=== PATIENT | female | born 1980 | race African-American/Black ===

== ENCOUNTER 2018-04-28 10:46 | Emergency (ER) | payer BC, OTHER ==
[~2018-04-28] VITALS: Ht 160 cm; Wt 77.1 kg
[~2018-04-28 10:46] MED LIST: APAP500 PO; AUGMENTIN 875875 MG PO; BACTRIM DS TAB1 EACH PO; CIPRO500 MG PO; HYDROCODON-ACE1 EAC7 PO; KEFLEX500 MG PO; LOPERAMIDE 2 MG2 M1 PO; MACROBID 100 M100 M1 PO; MEDROLDOSEPACK PO; NORCO 5-325 TA1 EACH PO; OMEPRAZOLE10 MG PO; ONDANSETRON HCL4 M2 PO; ORTHO TRI-CYCL1 EACH PO; PHENERGAN 25 MG25 M1 PO; PRILOSEC 20 MG20 MG PO; PYRIDIUM200 MG PO; VENTOLIN HFA 1818 GM INH; ZANTAC 150MG T150 MG PO; ZOFRAN ODT4 MG PO; ZOFRAN4 MG PO
[2018-04-28 11:01] LABS: URINE BILIRUBIN NEGATIVE (Negative); URINE BLOOD NEGATIVE (Negative); URINE CLARITY CLEAR; URINE COLOR YELLOW; URINE GLUCOSE-RANDOM* NEGATIVE (Negative); URINE KETONES NEGATIVE (Negative); URINE LEUKOCYTES-REFLEX NEGATIVE (Negative); URINE NITRITE-REFLEX NEGATIVE (Negative); URINE PROTEIN (DIPSTICK) NEGATIVE (Negative); URINE SPECIFIC GRAVITY 1.025 (1.005-1.035); URINE UROBILINOGEN 0.2 E.U./dl (0.2-1.0)
[2018-04-28] MEDS ORDERED: ACCUNEB SO1.25 MG/1 INH (11:03)
[2018-04-28 11:14] LABS: ABSOLUTE NEUTROPHILS 5.9 thou/uL (1.4-8.2); HEMATOCRIT 39.6 % (37.0-47.0); HEMOGLOBIN 13.3 gm/dL (12.0-15.0); LYMPHOCYTES 32.2 % (24.0-44.0); MCH 28.5 pg (26.0-34.0); MCHC 33.4 g/dL (28.0-37.0); MCV 85.1 fL (80.0-100.0); MONOCYTES 5.7 % (1.0-8.0); PLATELET COUNT 259 thou/uL (150-400); POLYS 59.1 % (36.0-66.0); RBC 4.65 mil/uL (4.20-5.00); RDW 13.5 % (10.5-14.5); WBC 9.9 thou/uL (4.0-11.0)
[2018-04-28 11:22] LABS: CALCIUM 9.5 mg/dL (8.5-10.1); CREATININE 0.9 mg/dL (0.6-1.0); POTASSIUM 4.3 mmol/L (3.5-5.1)
[2018-04-28 11:29] LABS: ALBUMIN 3.9 g/dL (3.4-5.0); TOTAL BILIRUBIN 0.2 mg/dL (<0.1-1.0); TOTAL PROTEIN 7.8 g/dL (6.4-8.2)
[2018-04-28] MEDS ORDERED: PHENERGAN 25 MG25 M1 PO (12:28)
[2018-04-28 12:40] VITALS: BP 118/76
== END 2018-04-28 12:41 | disposition home or self-care (01) ==
LOC: ER 10:46
PROVIDERS: Physician Assistant
DX: J06.9 Acute upper respiratory infection, unspecified (principal); B34.9 Viral infection, unspecified; R11.2 Nausea with vomiting, unspecified; R19.7 Diarrhea, unspecified; J45.909 Unspecified asthma, uncomplicated; K21.9 Gastro-esophageal reflux disease without esophagitis; Z88.6 Allergy status to analgesic agent; Z98.890 Other specified postprocedural states

== ENCOUNTER 2018-06-08 10:14 | Inpatient (IN) | payer BC, OTHER ==
[~2018-06-08] VITALS: Ht 160 cm; Wt 77.1 kg
[~2018-06-08 10:14] MED LIST changes: +ACCUNEB SO1.25 MG/1 INH
[2018-06-08 10:22] VITALS: BP 136/70
[2018-06-08 10:48] LABS: URINE BILIRUBIN NEGATIVE (Negative); URINE BLOOD 2+ (Negative); URINE CLARITY CLOUDY; URINE COLOR YELLOW; URINE GLUCOSE-RANDOM* NEGATIVE (Negative); URINE KETONES NEGATIVE (Negative); URINE NITRITE-REFLEX POSITIVE (Negative); URINE PROTEIN (DIPSTICK) 1+ (Negative); URINE UROBILINOGEN 0.2 E.U./dl (0.2-1.0)
[2018-06-08 10:49] LABS: URINE LEUKOCYTES-REFLEX 2+ (Negative)
[2018-06-08 10:53] LABS: SQUAMOUS >10 Many /LPF (0-3)
[2018-06-08 10:54] LABS: BACTERIA-REFLEX >30 Many /HPF (None Seen); CASTS None Seen /LPF (None Seen); CRYSTALS None Seen /LPF (None Seen); URINE RBC 3-10 Few /HPF (0-2); URINE WBC-REFLEX >25 Many /HPF (0-5)
[2018-06-08 11:01] LABS: ABSOLUTE NEUTROPHILS 12.6 thou/uL (1.4-8.2); BASOPHILS 0.4 % (0.0-2.0); EOSINOPHILS 0.2 % (0.0-3.0); HEMATOCRIT 37.2 % (37.0-47.0); HEMOGLOBIN 12.3 gm/dL (12.0-15.0); MCH 27.7 pg (26.0-34.0); MCHC 32.9 g/dL (28.0-37.0); MCV 84.1 fL (80.0-100.0); MONOCYTES 7.4 % (1.0-8.0); PLATELET COUNT 202 thou/uL (150-400); RBC 4.42 mil/uL (4.20-5.00); RDW 13.4 % (10.5-14.5); WBC 14.8 thou/uL (4.0-11.0)
[2018-06-08 11:09] LABS: CALCIUM 8.7 mg/dL (8.5-10.1); POTASSIUM 3.6 mmol/L (3.5-5.1)
[2018-06-08 11:15] LABS: ALBUMIN 3.6 g/dL (3.4-5.0); TOTAL BILIRUBIN 0.5 mg/dL (<0.1-1.0); TOTAL PROTEIN 7.1 g/dL (6.4-8.2)
[2018-06-08 13:39] VITALS: BP 132/79
[2018-06-08 14:36] VITALS: BP 138/95
[2018-06-08 19:16] VITALS: BP 133/57
--- NOTE | 2018-06-08 19:30 | NUR ---
PT ARRIVED UNIT ON CART AND IV ON 1400H. PT ABLE TO AMBULATE FROM CART TO BED AND ALSO USE BATHROOM. PT A&O X4. PT STATED R FLANK PAIN. PT TOLERATED MED. PT HAD ALSO STATED MERAZ AND STATED RELIEF FROM TYLENOL. PT HAS SCD'S ON. PT CURRENTLY IN BED. PT AND PT'S FAMILY (MUM) AT BEDSIDE WERE ORIENTIED TO UNIT AND TO USE CALL LIGHT FOR ASSISTANCE. PT CALL LIGHT WITHIN REACH AND CONTINUES TO BE MONITORED FOR SAFETY.
[2018-06-09 04:12] VITALS: BP 143/68
--- NOTE | 2018-06-09 05:33 | NUR ---
results of positive blood culture called to shameka reddy NP. patient took shower, linens changed. required both PO and IV PRN med for discomfort in right flank. stand by assist to bathroom provided.
[2018-06-09 06:13] LABS: HEMATOCRIT 32.6 % (37.0-47.0); HEMOGLOBIN 10.9 gm/dL (12.0-15.0); MCH 28.3 pg (26.0-34.0); MCHC 33.5 g/dL (28.0-37.0); MCV 84.4 fL (80.0-100.0); RBC 3.86 mil/uL (4.20-5.00); RDW 13.8 % (10.5-14.5); WBC 10.6 thou/uL (4.0-11.0)
[2018-06-09 07:27] VITALS: BP 138/53
[2018-06-09 19:14] VITALS: BP 133/68
--- NOTE | 2018-06-10 02:50 | NUR ---
ASSUMED CARE 190. VSS. ASSESSMENT CHARTED. PT C/O R FLANK PAIN CONTROLED WITH PRN PAIN MEDS PER EMAR. LOW GRADE FEVER TREATED WITH TYLENOL, FLUIDS, ABX PER EMAR. INDEPENDENT TO BEDSIDE COMMOD. MARI N/V, SOA, OR OTHER CONCERNS. WILL CONTINUE TO MONITOR AND WITH POC.
[2018-06-10 04:35] VITALS: BP 123/51
[2018-06-10 07:35] VITALS: BP 120/56
[2018-06-10] MEDS ORDERED: CEFUROXIME500 MG PO (08:49)
[2018-06-10 15:44] VITALS: BP 120/56
--- NOTE | 2018-06-10 16:59 | NUR ---
PT ASSESSED AT START OF SHIFT. PT FEELING BETTER BUT STILL HAVING SOME FLANK PAIN. LOW GRADE TEMP. IV ANTIBIOTICS GIVEN. PT VOIDING CLEAR,YELLOW URINE. EATING AND DRINKING WELL. DR. PAINTER IN THIS AFTERNOON TO ASSESS PT. DISCHARGED PT HOME W/ PO ANTIBIOTICS AND WILL F/U W/ HER FOR REPEAT UA.
== END 2018-06-10 17:40 | disposition home or self-care (01) | DRG 872 ==
LOC: ER 10:14 → EROBS 11:44 → 4E 11:44
PROVIDERS: Physician Assistant; ADMIT Hospitalist
DX: A41.50 Gram-negative sepsis, unspecified (principal); N12 Tubulo-interstitial nephritis, not specified as acute or chronic; E86.0 Dehydration; N30.90 Cystitis, unspecified without hematuria; K21.9 Gastro-esophageal reflux disease without esophagitis; J45.909 Unspecified asthma, uncomplicated; Z98.891 History of uterine scar from previous surgery; Z79.899 Other long term (current) drug therapy; Z88.6 Allergy status to analgesic agent; Z88.8 Allergy status to other drugs, medicaments and biological substances
CPT/HCPCS: 10183; 10783

== ENCOUNTER 2019-01-03 19:05 | Emergency (ER) | payer BC, OTHER ==
[~2019-01-03 19:05] MED LIST changes: +CEFUROXIME500 MG PO
[2019-01-03] MEDS ORDERED: PROMS25 WY RECTAL (20:22)
[2019-01-03] MEDS ORDERED: BUTALB-APAP-CA1 EACH PO (20:22)
[2019-01-03 20:58] VITALS: BP 144/72
== END 2019-01-03 21:00 | disposition home or self-care (01) ==
LOC: ER 19:05
DX: G43.909 Migraine, unspecified, not intractable, without status migrainosus (principal); K21.9 Gastro-esophageal reflux disease without esophagitis; J45.909 Unspecified asthma, uncomplicated; Z98.890 Other specified postprocedural states; Z88.6 Allergy status to analgesic agent

== ENCOUNTER 2020-01-18 23:54 | Emergency (ER) | payer OTHER ==
[~2020-01-18] VITALS: Ht 160 cm; Wt 77.1 kg
[~2020-01-18 23:54] MED LIST changes: +BUTALB-APAP-CA1 EACH PO; +PROMS25 WY RECTAL
[2020-01-19 01:21] LABS: ABSOLUTE NEUTROPHILS 8.6 thou/uL (1.4-8.2); BASOPHILS 0.3 % (0.0-2.0); EOSINOPHILS 1.7 % (0.0-3.0); HEMATOCRIT 34.6 % (37.0-47.0); HEMOGLOBIN 11.1 gm/dL (12.0-15.0); LYMPHOCYTES 24.5 % (24.0-44.0); MCH 27.2 pg (26.0-34.0); MONOCYTES 6.2 % (1.0-8.0); PLATELET COUNT 240 thou/uL (150-400); POLYS 67.3 % (36.0-66.0); RBC 4.07 mil/uL (4.20-5.00); RDW 14.2 % (10.5-14.5); WBC 12.8 thou/uL (4.0-11.0)
[2020-01-19 01:22] LABS: URINE BILIRUBIN NEGATIVE (Negative); URINE BLOOD NEGATIVE (Negative); URINE CLARITY CLOUDY; URINE COLOR YELLOW; URINE GLUCOSE-RANDOM* NEGATIVE (Negative); URINE KETONES NEGATIVE (Negative); URINE LEUKOCYTES-REFLEX NEGATIVE (Negative); URINE NITRITE-REFLEX NEGATIVE (Negative); URINE PROTEIN (DIPSTICK) NEGATIVE (Negative); URINE SPECIFIC GRAVITY >= 1.030 (1.005-1.035); URINE UROBILINOGEN 0.2 E.U./dl (0.2-1.0)
[2020-01-19 01:25] LABS: ANION GAP 12 mmol/L (7-16); BUN 9 mg/dL (7-18); CALCIUM 8.8 mg/dL (8.5-10.1); CHLORIDE 105 mmol/L (98-107); CO2 21 mmol/L (21-32); CREATININE 0.8 mg/dL (0.6-1.0); GLUCOSE 105 mg/dL (74-106); POTASSIUM 3.9 mmol/L (3.5-5.1); SODIUM 138 mmol/L (136-145)
[2020-01-19 01:31] LABS: ALBUMIN 3.4 g/dL (3.4-5.0); DIRECT BILIRUBIN < 0.1 mg/dL (<0.1-0.2); LIPASE 265 U/L (73-393); SGOT 17 U/L (15-37); SGPT 16 U/L (30-65); TOTAL BILIRUBIN 0.1 mg/dL (0.2-1.0); TOTAL PROTEIN 7.1 g/dL (6.4-8.2)
[2020-01-19] MEDS ORDERED: LIDODERM1 EACH TOP (02:42)
[2020-01-19 02:47] LABS: LARGE PLATELETS SEVERAL
[2020-01-19 02:55] VITALS: BP 129/66
== END 2020-01-19 02:58 | disposition home or self-care (01) ==
LOC: ER 23:54
PROVIDERS: Emergency Medicine
DX: O26.891 Other specified pregnancy related conditions, first trimester (principal); M54.5 Low back pain; R25.2 Cramp and spasm; R11.0 Nausea; R19.7 Diarrhea, unspecified; O99.511 Diseases of the respiratory system complicating pregnancy, first trimester; J45.909 Unspecified asthma, uncomplicated; O99.611 Diseases of the digestive system complicating pregnancy, first trimester; K21.9 Gastro-esophageal reflux disease without esophagitis; Z98.890 Other specified postprocedural states; Z79.899 Other long term (current) drug therapy; Z88.8 Allergy status to other drugs, medicaments and biological substances; Z88.6 Allergy status to analgesic agent; Z3A.01 Less than 8 weeks gestation of pregnancy